=== PATIENT | male | born 1995 | race Caucasian/White ===

== ENCOUNTER → 2021-02-01 | Emergency (ER) | payer MEDICAID ==
[~2021-02-01] MED LIST: NACL 0.9% 1,000 ML IV ONE
[2021-02-01 04:14] VITALS: BP_SYST 122
[2021-02-01 04:51] LABS: BILIRUBIN,URINE NEGATIVE (NEGATIVE); BLOOD, URINE NEGATIVE (NEGATIVE); CLARITY/URINE CLEAR (CLEAR); COLOR,URINE YELLOW (YELLOW); GLUCOSE,URINE TRACE (NEGATIVE); KETONES,URINE NEGATIVE (NEGATIVE); LEUKOCYTE ESTERASE ,URINE NEGATIVE (NEGATIVE); NITRITE, URINE NEGATIVE (NEGATIVE); PROTEIN URINE NEGATIVE (NEGATIVE); UROBILINOGEN,URINE 0.2 (0.2-1.0)
[2021-02-01 05:03] LABS: BASOPHILS % (AUTO) 0.8 % (0.0-2.0); EOSINOPHILS # (AUTO) 0.1 K/uL (0.0-0.4); EOSINOPHILS % (AUTO) 1.1 % (0.0-4.0); HEMATOCRIT 44.7 % (36-54); HEMOGLOBIN 14.9 g/dL (14.0-18.0); LYMPHOCYTES # (AUTO) 1.9 K/uL (1.0-5.5); LYMPHOCYTES % (AUTO) 40.5 % (20.5-51.5); MEAN CORPUSCULAR HEMOGLOBIN 32 pg (27-31); MEAN CORPUSCULAR HGB CONC 33 % (32-36); MEAN CORPUSCULAR VOLUME 95 fL (79.0-98.0); MONOCYTES # (AUTO) 0.2 K/uL (0.0-1.0); MONOCYTES % (AUTO) 4.4 % (1.7-9.3); NEUTROPHILS # (AUTO) 2.5 K/uL (1.8-7.7); NEUTROPHILS % (AUTO) 53.2 % (40.0-70.0); PLATELET COUNT (AUTO) 259 K/uL (130-430); RED CELL DISTRIBUTION WIDTH 12.8 % (9.0-15.0); WHITE BLOOD COUNT (AUTO) 4.8 K/uL (4.8-10.8)
[2021-02-01 05:06] LABS: BARBITURATE, URINE NEGATIVE (NEG <=200); BENZODIAZEPINE, URINE NEGATIVE (NEG <=150); CANNABINOID, URINE NEGATIVE (NEG <=50); COCAINE, URINE NEGATIVE (NEG <=150); METHAMPHETAMINES SCREEN,URINE NEGATIVE (NEG <=500); OPIATE, URINE NEGATIVE (NEG <=100); PHENCYCLIDINE SCREEN,URINE NEGATIVE (NEG <=25); UR TRICYCLIC ANTIDEPRESSANTS NEGATIVE (NEG <=300); URINE AMPHETAMINE NEGATIVE (NEG <=500); URINE METHADONE NEGATIVE (NEG <=200); URINE OXYCODONE SCREEN NEGATIVE (NEG <=100); URINE PROPOXYPHENE SCREEN NEGATIVE (NEG <=300)
[2021-02-01 05:13] LABS: ANION GAP 19 (5-15); CHLORIDE 106 mmol/L (98-107); CREATININE 1.29 mg/dL (0.55-1.30); GLUCOSE 194 mg/dL (70-99); POTASSIUM 3.8 mmol/L (3.5-5.1); SODIUM SERUM 145 mmol/L (136-145); UREA NITROGEN, BLOOD 7 mg/dL (8-21)
[2021-02-01 05:24] LABS: GFR AFRICAN AMERICAN 89 mL/min (>90)
[2021-02-01 05:29] LABS: INR 1.1 (0.80-1.20); PROTHROMBIN TIME 11.5 SECS (9.5-12.5)
[2021-02-01 05:30] LABS: ALANINE AMINOTRANSFERASE 56 U/L (12-78); ALBUMIN 4.3 g/dL (3.4-4.8); ALCOHOL, BLOOD 192 mg/dL (<10); ASPARTATE AMINOTRANSFERASE 67 U/L (10-37); TOTAL BILIRUBIN 0.3 mg/dL (0.0-1.0)
[2021-02-01 05:31] LABS: ACETAMINOPHEN < 1 ug/mL (1-30)
[2021-02-01 06:13] LABS: CKMB RELATIVE INDEX 0.4 (0.0-2.9); CREATINE KINASE MB 2.7 ng/mL (0-3.6)
[2021-02-01 08:52] VITALS: BP_SYST 108
== END | disposition home or self-care (01) ==
LOC: SED 04:14 → EDBD 04:14
DX: T51.0X1A Toxic effect of ethanol, accidental (unintentional), initial encounter (principal); F10.129 Alcohol abuse with intoxication, unspecified; Y90.6 Blood alcohol level of 120-199 mg/100 ml; Y92.89 Other specified places as the place of occurrence of the external cause
CPT/HCPCS: 36415; 80053; 80307; 81003; 82550; 82553; 84484; 85025; 85610; 93005; 96360; 99284; G0480; G0481; G0482; J7030

== ENCOUNTER 2021-07-18 17:17 | Emergency (ER) | payer MEDICAID, OTHER ==
[~2021-07-18] VITALS: Ht 175.3 cm; Wt 68.0 kg
[2021-07-18 17:17] VITALS: BP_SYST 147
--- NOTE | 2021-07-18 17:17 | NUR ---
Placed in room 02 . Placed on manager psychiatry, blood pressure machine and pulse oximeter. To gown for exam. Side rails up. Report given to NILA James
--- NOTE | 2021-07-18 17:17 | NUR ---
PATIENT BROUGHT IN PRIVATE AUTO WITH FRIENDS. PATIENT PULLED OUT OF CAR AND PLACED IN GURNEY BY 2 RNS. FRIEND REPORTS THAT PT PICKED HIM UP 30 MINS PRIOR TO ARRIVAL IN ED AND "WAS FINE." REPORTS HE TAKES OXYCODONE AND DOES NOT KNOW WHAT ELSE HE TAKES. PATIENT ARRIVES WITH SHALLOW BREATHING, TACHYCARDIA IN 120S BPM RR 8 DROOLING. UNRESPONSIVE TO PAINFUL STIMULI. PINPOINT PUPILS, PAIN 0/10. REPORT GIVEN TO NILA FORMAN
--- NOTE | 2021-07-18 17:18 | NUR ---
# 18 gauge angiocath placed to RAC and LACUse of asceptic technique. Opsite placed over site. Blood return noted. Blood for lab drawn from site. Flushed with 10 cc of normal saline. No evidence of infiltration noted. Patient tolerated well.
[2021-07-18] MEDS ORDERED: NALOXONE HCL 2 MG/2 ML SYR IVP ONE (17:30)
--- NOTE | 2021-07-18 17:35 | NUR ---
REFUSES CARE, ALERT, RESP UNLABORED, SKIN WARM AND DRY
--- NOTE | 2021-07-18 17:40 | NUR ---
SITTING UP TALKING ON PHONE, PT CALM, ALERT, NO DISTRESS.
--- NOTE | 2021-07-18 17:47 | NUR ---
SITTING UP TALKING WITH REGISTRATION, PROVIDING PERSONAL INFO
[2021-07-18 18:00] LABS: ANION GAP 11 (5-15); BASOPHILS # (AUTO) 0.1 K/uL (0.0-0.2); BASOPHILS % (AUTO) 0.9 % (0.0-2.0); CALCIUM 8.5 mg/dL (8.4-11.0); CHLORIDE 103 mmol/L (98-107); EOSINOPHILS # (AUTO) 0.1 K/uL (0.0-0.4); EOSINOPHILS % (AUTO) 0.6 % (0.0-4.0); GLUCOSE 231 mg/dL (70-99); HEMATOCRIT 47.9 % (36-54); HEMOGLOBIN 15.9 g/dL (14.0-18.0); LYMPHOCYTES # (AUTO) 5.7 K/uL (1.0-5.5); LYMPHOCYTES % (AUTO) 58.7 % (20.5-51.5); MEAN CORPUSCULAR HEMOGLOBIN 32 pg (27-31); MEAN CORPUSCULAR HGB CONC 33 % (32-36); MEAN CORPUSCULAR VOLUME 97 fL (79.0-98.0); MONOCYTES # (AUTO) 0.5 K/uL (0.0-1.0); MONOCYTES % (AUTO) 5.3 % (1.7-9.3); NEUTROPHILS # (AUTO) 3.4 K/uL (1.8-7.7); NEUTROPHILS % (AUTO) 34.5 % (40.0-70.0); PLATELET COUNT (AUTO) 358 K/uL (130-430); RED BLOOD CELL COUNT(AUTO) 4.94 MIL/uL (4.2-6.2); RED CELL DISTRIBUTION WIDTH 13.4 % (9.0-15.0); SODIUM SERUM 140 mmol/L (136-145); UREA NITROGEN, BLOOD 9 mg/dL (8-21); WHITE BLOOD COUNT (AUTO) 9.7 K/uL (4.8-10.8)
[2021-07-18 18:02] LABS: PROTHROMBIN TIME 10.6 SECS (9.5-12.5)
[2021-07-18 18:06] LABS: ALANINE AMINOTRANSFERASE 27 U/L (12-78); ALBUMIN 4.4 g/dL (3.4-4.8); ALCOHOL, BLOOD 90 mg/dL (<10); ASPARTATE AMINOTRANSFERASE 22 U/L (10-37); TOTAL BILIRUBIN 0.4 mg/dL (0.0-1.0)
[2021-07-18 18:11] LABS: ACETAMINOPHEN < 1 ug/mL (1-30); GFR AFRICAN AMERICAN 106 mL/min (>90); POTASSIUM 2.8 mmol/L (3.5-5.1)
[2021-07-18 18:13] LABS: C-REACTIVE PROTEIN QUANT < 0.2 mg/dL (0-0.5)
[2021-07-18] MEDS ORDERED: POTASSIUM CHLORIDE 20 MEQ/PKT PACKET PO ONE (18:15)
[2021-07-18 18:20] VITALS: BP_SYST 124
--- NOTE | 2021-07-18 18:20 | NUR ---
Patient does not wish to proceed with medical care recommended by [facility]. Patient given information related to possible complications, up to and including , which could occur as a result of leaving hospital at this time. Patient verbalizes understanding of risks involved leaving against medical advice. Patient has signed AMA form.
[2021-07-18 19:34] LABS: ACETONE, SERUM NEGATIVE (NEGATIVE)
== END 2021-07-18 18:20 | disposition left against medical advice (07) ==
LOC: SED 17:17
DX: T40.2X1A Poisoning by other opioids, accidental (unintentional), initial encounter (principal); Y92.89 Other specified places as the place of occurrence of the external cause
CPT/HCPCS: 36415; 70450; 71045; 76376; 80053; 82009; 82140; 82550; 83605; 83880; 84484; 85025; 85610; 85730; 86140; 96374; 99285; G0480; J2310; G0481; G0482